=== PATIENT | male | born 1970 | race Caucasian/White ===

== ENCOUNTER → 2017-11-06 | Outpatient (CLI) | payer OTHER ==
[~2017-11-06] MED LIST: RXCLIN PO
[2017-11-06 11:27] LABS: BODY FLUID RBC 0.102 (0-0); RBC Count, Synovial Fluid 102000 /mm3 (0-0); WBC Count, Synovial Fluid 4376 /mm3 (0-180)
[2017-11-06 11:38] LABS: Appearance, Synovial Fluid Bloody (Clear); Color, Synovial Fluid Red (None-P Yel)
[2017-11-06 12:23] LABS: Lymphs, Synovial Fluid 20 % (0-15); Monocytes/Macrophages, Synovia 12 % (0-65); Neutrophils, Synovial Fluid 68 % (0-24)
[2017-11-06 12:29] LABS: Body Fluid Crystals NEG (NEGATIVE)
== END | disposition home or self-care (01) ==
LOC: LAB 11:05 → LAB SHORT 11:05
PROVIDERS: Orthopaedic Surgery
DX: M70.40 Prepatellar bursitis, unspecified knee (principal)
CPT/HCPCS: 87070; 87075; 87077; 87147; 87186; 87205; 89051; 89060

== ENCOUNTER → 2017-11-27 | Outpatient (CLI) | payer SELFPAY | LOC: LAB SHORT 07:52 → LAB 07:52 | DX: M70.40 Prepatellar bursitis, unspecified knee (principal) | CPT/HCPCS: 36415; 85651; 86140 ==

== ENCOUNTER → 2022-08-14 | Outpatient (CLI) | payer OTHER | END | disposition home or self-care (01) | LOC: LAB 10:50 → LAB SHORT 10:50 | DX: R53.83 Other fatigue (principal); R82.90 Unspecified abnormal findings in urine | CPT/HCPCS: 87086 ==